=== PATIENT | female | born 1985 | race Caucasian/White ===

== ENCOUNTER 2017-01-11 08:11 | Emergency (ER) | payer OTHER ==
[~2017-01-11] VITALS: Ht 152.4 cm; Wt 72.6 kg
[2017-01-11] MEDS ORDERED: CEPH250S2 PO (08:43)
--- NOTE | 2017-01-11 08:44 | PHYS DOC ---
Past History Past Medical History: Other Past Surgical History: No Surgical History Smoking: Non-smoker Alcohol Use: None Drug Use: None Adult General Chief Complaint Chief Complaint: TOE PROBLEM HPI HPI Patient is a 31 year old F who presents with a right great toe nail that is ingrown and infected. Patient states it has gotten worse over the past couple days with increasing pain. Patient states walking makes it worse and resting makes it better. Patient denies any fevers. Patient denies any other symptoms. Review of Systems Review of Systems GEN: Denies fevers, chills, sweats HEENT: Denies blurred vision, sore throat CV: Denies chest pain RESP: Denies shortness of air, cough GI: Denies n/v/d NEURO: Denies confusion, dizziness MSK: Right great toe pain Allergies Allergies Allergies Coded Allergies Type Severity Reaction Last Updated Verified No Known Drug Allergies 10/25/13 No Physical Exam Physical Exam GEN.: No apparent distress. Alert and oriented. HEENT: Head is normocephalic, atraumatic NECK: Supple. LUNGS: CTAB. HEART: RRR, S1, S2 present. Peripheral pulses intact ABDOMEN: Soft, nontender. Positive bowel sounds. EXTREMITIES: Without any cyanosis, on the lateral side of the right great toe there is ingrown toenail with swelling and erythema secondary to paronychia , good dorsal pedis pulse, cap refill less than 2 seconds NEUROLOGIC: Normal speech, normal tone PSYCHIATRIC: Normal affect, normal mood. SKIN: No ulcerations EKG EKG [] Radiology/Procedures Radiology/Procedures [] Course & Med Decision Making Course & Med Decision Making Pertinent Labs and Imaging studies reviewed. (See chart for details) MDM: After reviewing the chart, CC/HPI/PMH, physical exam, I do not believe the patient has a emergent medical condition warranting further workup and/or admission at this time. I do not think the patient is septic from the paronychia infection on the right great toe. Explained to the patient that we' ll treat the paronychia with antibiotics first and have her follow-up with her family doctor or podiatry to deal with the ingrown toenail. Patient is stable for discharge. Additional verbal discharge instructions were provided to the patient and that if symptoms get worse or any new symptoms arise that are worrisome to the patient she is to return to the emergency room immediately [] Dragon Disclaimer Dragon Disclaimer This chart was dictated in whole or in part using Voice Recognition software in a busy, high-work load, and often noisy Emergency Department environment. It may contain unintended and wholly unrecognized errors or omissions. Departure Departure: Impression: Primary Impression: Paronychia of great toe, right Disposition: 01 HOME, SELF-CARE Condition: STABLE Referrals: LONNIE RUIZ MD (PCP) Patient Instructions: Paronychia, [id number] Scripts Cephalexin (CEPHALEXIN) 250 Mg/5 Ml Susp.recon 10 ML PO TID for 10 Days, #300 ML Prov: LALO BURGER DO 01/11/17 LALO BURGER DO Jan 11, 2017 08:44
[2017-01-11 09:12] VITALS: BP 122/94
[2017-01-11] MEDS ORDERED: EPINEPHrine 1 MG/ML AMPUL ONE (09:23)
== END 2017-01-11 09:00 | disposition home or self-care (01) ==
LOC: ER 08:11
DX: L03.031 Cellulitis of right toe (principal)
CPT/HCPCS: 99283

== ENCOUNTER 2020-10-04 16:26 | Emergency (ER) | payer OTHER, MEDICAID ==
[~2020-10-04] VITALS: Ht 152.4 cm; Wt 100.0 kg
[~2020-10-04 16:26] MED LIST: CEPH250S2 PO
[2020-10-04 16:28] VITALS: BP 122/94
--- NOTE | 2020-10-04 16:44 | PHYS DOC ---
Past History Past Medical History: Anxiety, Depression, Schizophrenia, Other Past Surgical History: No Surgical History Smoking: Non-smoker Alcohol Use: Rarely Drug Use: None General Adult EDM: Chief Complaint: KNEE INJURY HPI: HPI: Patient is a 28-year-old female brought in by EMS for right knee pain and swe lling. Patient states earlier she was moving some boxes and had a heavy 1 and was rotating to her right when she felt a pop. Has had a clicking sensation since on occasion with movement of her knee. States she has chronic knee pain sports injury. Never had surgery in that knee. No other injuries, otherwise been well. Review of Systems: Review of Systems: All other systems within normal limits except for as noted in the HPI Allergies: Allergies: Allergies Coded Allergies Type Severity Reaction Last Updated Verified No Known Drug Allergies 10/25/13 No Physical Exam: PE: Constitutional: Well developed, well nourished, no acute distress, non-toxic appearance. [] HENT: Normocephalic, atraumatic, bilateral external ears normal, nose normal. [] Eyes: PERRLA, conjunctiva normal, no discharge. [] Neck: No rigidity, supple, no stridor. [] Cardiovascular: Regular rate and rhythm, brisk cap refill [] Lungs & Thorax: Non labored symmetric respirations, no tachypnea or respiratory distress [] Abdomen: Soft, nondistended. Skin: Warm, dry, no erythema, no rash. [] Back: Unremarkable Extremities: No deformities, range of motion grossly intact, no lower extremity edema. Right knee exam: Tenderness over medial joint line, no varus, valgus, anterior, or posterior laxity. Moderate joint effusion. Range of motion intact in flexion extension of knee with and without resistance. [] Neurologic: Alert and oriented X 3, no focal deficits noted. [] Psychologic: Affect normal, judgement normal, mood normal. [] EKG: EKG: [] Radiology/Procedures: Radiology/Procedures: Right knee x-rays 3 views HISTORY: Right knee pain and swelling. FINDINGS: There is no true lateral view this may limit evaluation for subtle fractures or for a joint effusion. No fracture. No dislocation. No arthritic change. Soft tissues are unremarkable. IMPRESSION: No acute osseous injury. [] Heart Score: C/O Chest Pain: No Risk Factors: Risk Factors: DM, Current or recent (<one month) smoker, HTN, HLP, family history of CAD, obesity. Risk Scores: Score 0 - 3: 2.5% MACE over next 6 weeks - Discharge Home Score 4 - 6: 20.3% MACE over next 6 weeks - Admit for Clinical Observation Score 7 - 10: 72.7% MACE over next 6 weeks - Early Invasive Strategies Course & Med Decision Making: Course & Med Decision Making Pertinent Labs and Imaging studies reviewed. (See chart for details) [] Dragon Disclaimer: Dragon Disclaimer: This electronic medical record was generated, in whole or in part, using a voice recognition dictation system. Departure Departure: Impression: Primary Impression: Right knee injury Disposition: HOME / SELF CARE / HOMELESS Condition: STABLE Referrals: LONNIE RUIZ MD (PCP) Patient Instructions: Knee Wraps (Elastic Bandage) and RICE Additional Instructions: Obtain a hinged knee brace, available at most pharmacies. Wear whenever ambulating. Follow-up with your primary care provider for reevaluation in 4-5 days, possible MRI, and orthopedics referral for suspected meniscus injury. Scripts Lidocaine (Lidocaine) 5 Gm Cream..g. 1 RUBIO TP BID PRN for PAIN for 14 Days, #15 GM 0 Refills Prov: DAVIAN VELÁSQUEZ MD 10/04/20 DAVIAN VELÁSQUEZ MD Oct 04, 2020 16:44
--- NOTE | 2020-10-04 16:50 | RAD ---
Right knee x-rays 3 views HISTORY: Right knee pain and swelling. FINDINGS: There is no true lateral view this may limit evaluation for subtle fractures or for a joint effusion. No fracture. No dislocation. No arthritic change. Soft tissues are unremarkable. IMPRESSION: No acute osseous injury. Electronically signed by: Alex Jefferson MD (10/04/2020 4:48 PM) [id number]
[2020-10-04] MEDS ORDERED: LIDO5CRE18 TP (17:02)
== END 2020-10-04 17:12 | disposition home or self-care (01) ==
LOC: ER 16:26
DX: S89.91XA Unspecified injury of right lower leg, initial encounter (principal); F20.9 Schizophrenia, unspecified; X50.9XXA Other and unspecified overexertion or strenuous movements or postures, initial encounter; Y93.89 Activity, other specified; Y92.89 Other specified places as the place of occurrence of the external cause; Y99.8 Other external cause status
CPT/HCPCS: 73562; 99283

== ENCOUNTER 2020-10-17 11:28 | Emergency (ER) | payer OTHER, MEDICAID ==
[~2020-10-17] VITALS: Ht 167.6 cm; Wt 67.0 kg
[~2020-10-17 11:28] MED LIST changes: +LIDO5CRE18 TP
[2020-10-17] MEDS ORDERED: ONDA4TAB12 PO (13:07)
--- NOTE | 2020-10-17 13:08 | PHYS DOC ---
Past History Past Medical History: Anxiety, Depression, Other Additional Past Medical Histor: CP Past Surgical History: Other Smoking: Non-smoker Alcohol Use: Occasionally Drug Use: None Adult General Chief Complaint Chief Complaint: NAUSEA/VOMITING/DIARRHEA HPI HPI Patient is a 35-year-old female presents to the emergency department complaining of needing a prescription refill for Zofran to treat her withdrawal symptoms from Zyprexa. Patient states she has a past medical history of cerebral palsy, depression and anxiety, is treated by Dr. Rankin psychiatry specialist at [facility], patient states her psychiatrist started her on Abilify and took her off of Zyprexa. Patient states that she becomes nauseated in waves and Zofran helps her. Patient states she has no more Zofran and would like to obtain a prescription today. Patient denies any chest pain, shortness of breath, homicidal suicidal ideations, denies auditory or visual hallucinations. Patient denies any other physical or neurological complaints. Review of Systems Review of Systems 14 body systems of review of systems have been reviewed. See HPI for pertinent positives and negative responses, otherwise all other systems are negative, nonpertinent or noncontributory. Allergies Allergies Allergies Coded Allergies Type Severity Reaction Last Updated Verified No Known Drug Allergies 10/25/13 No Physical Exam Physical Exam Constitutional: Well developed, well nourished, no acute distress, non-toxic appearance. 35-year-old female in no apparent distress. HENT: Normocephalic, atraumatic, bilateral external ears normal, oropharynx moist, no oral exudates, nose normal. Oropharynx moist, pink, no infectious process appreciated, no lymphadenopathy of the head or neck appreciated. Bilateral TMs within normal limits, by lateral nasal turbinates nonerythematous no drainage appreciated within normal limits. Eyes: PERRLA, EOMI, conjunctiva normal, no discharge. Neck: Normal range of motion, no tenderness, supple, no stridor. No nuchal rigidity, no meningismus signs. Cardiovascular:Heart rate regular rhythm, no murmur heart sounds S1-S2. Lungs & Thorax: Bilateral breath sounds clear to auscultation no adventitious lung sounds appreciated. Abdomen: Bowel sounds normal, soft, no tenderness, no masses, no pulsatile masses. Skin: Warm, dry, no erythema, no rash. Back: No tenderness, no CVA tenderness. Extremities: No tenderness, no cyanosis, no clubbing, ROM intact, no edema. Neurologic: Alert and oriented X 3, normal motor function, normal sensory funct ion, no focal deficits noted. Psychologic: Affect normal, judgement normal, mood normal. Current Patient Data Vital Signs Vital Signs Date Time Temp Pulse Resp B/P (MAP) Pulse Ox O2 Delivery O2 Flow Rate FiO2 10/17/20 11:44 98.8 90 18 137/74 (95) 99 Room Air EKG EKG [] Radiology/Procedures Radiology/Procedures [] Heart Score C/O Chest Pain: No Risk Factors: Risk Factors: DM, Current or recent (<one month) smoker, HTN, HLP, family history of CAD, obesity. Risk Scores: Risk Factors: DM, Current or recent (<one month) smoker, HTN, HLP, family history of CAD, obesity. Course & Med Decision Making Course & Med Decision Making Pertinent Labs and Imaging studies reviewed. (See chart for details) 35-year-old female, vital signs reviewed, presents emergency department chela rning refill for Zofran medication. Physical examination unremarkable, patient states she experiences waves of nausea since recently DC in her Zyprexa. Patient treats this nausea with Zofran as "it seems to help the best "discussed with patient will prescribe 16 tablets Zofran 4 mg ODT for as needed nausea. Patient amenable to this plan. Patient gave verbal understanding of discharge home instructions, follow-up with her primary care physician, keep appointment with her psychiatrist this coming week, return to ER precautions or concerns, patient had no further questions or concerns, was discharged home without incident. Dragon Disclaimer Dragon Disclaimer This electronic medical record was generated, in whole or in part, using a voice recognition dictation system. Departure Departure: Impression: Primary Impression: Medication refill Disposition: HOME / SELF CARE / HOMELESS Condition: GOOD Referrals: LONNIE RUIZ MD (PCP) Additional Instructions: You are seen in the emergency department for a refill of your Zofran. I have prescribed for you 16 tablets Zofran ODT. Please keep your appointment with your psychiatrist soon, return to the emergency department for worsening symptoms or other concerns. EMERGENCY DEPARTMENT GENERAL DISCHARGE INSTRUCTIONS Thank you for coming to [facility] (ED) today and trusting us with you care. We trust that you had a positivie experience in our Emergency Department. If you wish to speak to the department management, you may call the director at [phone]. YOUR FOLLOW UP INSTRUCTIONS ARE FOLLOWS: 1. Do you have a private Doctor? If you do not have a private doctor, please ask for a resource list of physicians or clinics that may be able to assist you with follow up care. 2. The Emergency Physician has interpreted your x-rays. The X-Ray specialist will also review them. If there is a change in the findings, you will be notified in 48 hours when at all possible. 3. A lab test or culture has been done, your results will be reviewed and you will be notified if you need a change in treatment. ADDITIONAL INSTRUCTIONS AND INFORMATION: 1. Your care today has been supervised by a physician who is specially trained in emergency care. Many problems require more than one evaluation for a complete diagnosis and treatment. We recommend that you schedule your follow up appointment as recommended to ensure complete treatment of you illness or injury. If you are unable to obtain follow up care and continue to have a problem, or if your condition worsens, we recommend that you return to the ED. 2. We are not able to safely determine your condition over the phone nor are we able to give sound medical advice over the phone. For these safety reasons, if you call for medical advice we will ask you to come to the ED for further evaluation. 3. If you have any questions regarding these discharge instructions please call the ED at [phone]. SAFETY INFORMATION: In the interest of safety, wellness, and injury prevention; we encourage you to wear your sealbelt, if you smoke; quite smoking, and we encourage family to use a protective helmet for bicycling and other sporting events that present an increased risk for head injury. IF YOUR SYMPTOMS WORSEN OR NEW SYMPTOMS DEVELOP, OR YOU HAVE CONCERNS ABOUT YOUR CONDITION; OR IF YOUR CONDITION WORSENS WHILE YOU ARE WAITING FOR YOUR FOLLOW UP APPOINTMENT; EITHER CONTACT YOUR PRIMARY CARE DOCTOR, THE PHYSICIAN WHOSE NAME AND NUMBER YOU WERE GIVEN, OR RETURN TO THE ED IMMEDIATELY. Scripts Ondansetron (ONDANSETRON ODT) 4 Mg Tab.rapdis 1 TAB PO PRN Q6-8HRS for NAUSEA, #16 TAB 0 Refills Prov: YADI VALIENTE AUTO SLIP COVER INSTALLER 10/17/20 YADI VALIENTE APRN Oct 17, 2020 13:08
[2020-10-17 13:11] VITALS: BP 117/77
== END 2020-10-17 13:11 | disposition home or self-care (01) ==
LOC: ER 11:28
DX: R11.0 Nausea (principal); Z76.0 Encounter for issue of repeat prescription; F41.9 Anxiety disorder, unspecified; F32.9 Major depressive disorder, single episode, unspecified; G80.9 Cerebral palsy, unspecified
CPT/HCPCS: 99281; 99283

== ENCOUNTER 2020-11-10 23:34 | Emergency (ER) | payer OTHER, MEDICAID ==
[~2020-11-10] VITALS: Ht 157.5 cm; Wt 72.0 kg
[~2020-11-10 23:34] MED LIST changes: +ONDA4TAB12 PO
--- NOTE | 2020-11-10 23:44 | PHYS DOC ---
Past History Past Medical History: Anxiety, Depression, Other Additional Past Medical Histor: CP Past Surgical History: Other Smoking: Non-smoker Alcohol Use: Occasionally Drug Use: None General Adult HPI: HPI: ".. I got this bad rash.. I ve been told it fungal.. I could not wait to see Dr. Young tomorrow... " Patient is a 35 year old female who presents with above hx and conplaints of rash on breasts x 3 days. Patient states rash is very irritating and inflamed. Patient has been told in the past that this rash was caused by fungus. No history of immunosuppression. No history of new exposures to soaps, foods, or other ill irritants. No recent travel. No specific ill contacts. No history immunosuppression. No history of diabetes. Patient does have a past medical history of anxiety, depression, cerebral palsy, deconditioning, and skin rashes. Patient follows with Dr. Young. Review of Systems: Review of Systems: Constitutional: Denies fever or chills Eyes: Denies change in visual acuity HENT: Denies nasal congestion or sore throat Respiratory: Denies cough or shortness of breath Cardiovascular: Denies chest pain or edema GI: Denies abdominal pain, nausea, vomiting, bloody stools or diarrhea : Denies dysuria Musculoskeletal: Denies back pain or joint pain Integument: Complains of rash Neurologic: Denies headache, focal weakness or sensory changes Endocrine: Denies polyuria or polydipsia Lymphatic: Denies swollen glands Psychiatric: Denies depression or anxiety Family History: Family History: Noncontributory to presentation. Current Medications: Current Meds: See nursing for home meds Allergies: Allergies: Allergies Coded Allergies Type Severity Reaction Last Updated Verified No Known Drug Allergies 10/25/13 No Physical Exam: PE: Constitutional: Moderate acute distress, non-toxic appearance. [] HENT: Normocephalic, atraumatic, bilateral external ears normal, oropharynx moist, no oral exudates, nose normal. Poor dentition Eyes: PERRLA, EOMI, conjunctiva normal, no discharge. [] Neck: Normal range of motion, no tenderness, supple, no stridor. [] Cardiovascular:Heart rate regular rhythm, no murmur [] Lungs & Thorax: Bilateral breath sounds equal apex few scattered wheezes on auscultation [] The area under breast and breast cleavage inflamed and red. Area had demarcation. Area was tender to touch. No adenopathy appreciated in axillary area. Abdomen: Bowel sounds normal, soft, no tenderness, no masses, no pulsatile mas ses. Obese. Skin: Warm, dry, no erythema, Carine versus tinea versicolor-like rash. [] Back: No tenderness, no CVA tenderness. [] Extremities: No tenderness, no cyanosis, no clubbing, ROM intact, no edema. Lower limb weakness, CP-chronic Neurologic: Alert and oriented X 3, decrease lower leg motor function, has distal sensory function, no new focal deficits noted. per pt. Psychologic: Affect anxious, judgement normal, mood normal. [] EKG: EKG: [] Radiology/Procedures: Radiology/Procedures: [] Heart Score: C/O Chest Pain: N/A Risk Factors: Risk Factors: DM, Current or recent (<one month) smoker, HTN, HLP, family history of CAD, obesity. Risk Scores: Score 0 - 3: 2.5% MACE over next 6 weeks - Discharge Home Score 4 - 6: 20.3% MACE over next 6 weeks - Admit for Clinical Observation Score 7 - 10: 72.7% MACE over next 6 weeks - Early Invasive Strategies Course & Med Decision Making: Course & Med Decision Making Pertinent Labs and Imaging studies reviewed. (See chart for details) Patient wash breast area and rest area with selenium sulfide shampoo at least twice a day. Use Epson salts and or salt compresses 4 times a day. To apply ketoconazole ointment twice a day to rash after compresses and washing.. Patient take Diflucan 100 mg daily for 3 days. Patient follow-up with Dr. Melgoza. Patient return if any concerns. In between worsening area of rash to keep area dry. Impression: 1. Rash-suspect candidiasis versus tenia versicolora [] Dragon Disclaimer: Dragon Disclaimer: This electronic medical record was generated, in whole or in part, using a voice recognition dictation system. Departure Departure: Referrals: LONNIE YOUNG MD (PCP) Scripts Ketoconazole (KETOCONAZOLE) 15 Gm Cream..g. 1 RUBIO TP BID for rash, #60 GM 1 Refill Prov: JEFF DOMINGO MD 11/11/20 Fluconazole (DIFLUCAN) 100 Mg Tablet 100 MG PO DAILY for rash for 3 Days, #3 TAB Prov: JEFF DOMINGO MD 11/11/20 Shivani Disclaimer This chart was dictated in whole or in part using Voice Recognition software in a busy, high-work load, and often noisy Emergency Department environment. It may contain unintended and wholly unrecognized errors or omissions. Dragon Disclaimer This chart was dictated in whole or in part using Voice Recognition software in a busy, high-work load, and often noisy Emergency Department environment. It may contain unintended and wholly unrecognized errors or omissions. JEFF DOMINGO MD November 10, 2020 23:43
[2020-11-11] MEDS ORDERED: HYDROcodon/IBUPROFEN 7.5/200MG 1 TAB TABLET PO ONE (00:30)
[2020-11-11] MEDS ORDERED: FLUCONAZOLE 100 MG TABLET. PO ONE (00:30)
[2020-11-11] MEDS ORDERED: KETO15CR2 TP (01:57)
[2020-11-11] MEDS ORDERED: FLUC100T7 PO (01:57)
[2020-11-11 02:07] VITALS: BP 133/88
[2020-11-11 02:14] LABS: BILIRUBIN,URINE NEG (NEG); CLARITY,URINE CLEAR; COLOR,URINE YELLOW; GLUCOSE,URINE NEG (NEG); NITRITE,URINE NEG (NEG)
[2020-11-11 02:15] LABS: BACTERIA,URINE 0 /HPF (0-FEW); RBC,URINE 0 /HPF (0-2); SQUAMOUS EPITHELIAL CELL,UR MANY /LPF; WBC,URINE 0 /HPF (0-4)
[2020-11-11] MEDS ORDERED: NYSTATIN 100,000 UNIT/GM TOPICAL CREAM 15GM TUBE. TP ONE (02:15)
[2020-11-11] MEDS ORDERED: KETOCONAZOLE 200 MG TABLET PO SCH (09:00)
== END 2020-11-11 02:06 | disposition home or self-care (01) ==
LOC: ER 23:34
DX: R21 Rash and other nonspecific skin eruption (principal); F41.9 Anxiety disorder, unspecified; F32.9 Major depressive disorder, single episode, unspecified
CPT/HCPCS: 81001; 81025; 99284

== ENCOUNTER 2020-11-11 22:47 | Emergency (ER) | payer OTHER, MEDICAID ==
[~2020-11-11] VITALS: Ht 157.5 cm; Wt 72.0 kg
[~2020-11-11 22:47] MED LIST changes: +FLUC100T7 PO; +KETO15CR2 TP
--- NOTE | 2020-11-12 00:23 | PHYS DOC ---
Past History Past Medical History: Alcoholism, Other Past Surgical History: No Surgical History Smoking: Non-smoker Alcohol Use: Heavy Drug Use: None General Adult EDM: Chief Complaint: SUICIDAL IDEATION HPI: HPI: 35-year-old female via EMS presents with report of suicidal ideation. Patient denies active plan. Patient reports she "just does not want to be here ". Patient reports history of increased life stressors. Patient reports that an individual that had bothered her previously seems to be "popping "back up. Patient reports this individual looks like Lavelle Srivastava. Patient reports she has subsequently discussed this with police multiple times who do not "believe her ". Patient reports history of chronic alcoholism. Reports previously drink several liters of vodka daily. Patient reports she has not drink within the last 24 hours. Denies history of delirium tremens. Denies . Denies illicit drug use. Review of Systems: Review of Systems: Constitutional: Denies fever or chills Eyes: Denies redness or eye pain HENT: Denies nasal congestion or sore throat Respiratory: Denies cough or shortness of breath Cardiovascular: Denies chest pain or palpitations GI: Denies abdominal pain, nausea, or vomiting : Denies dysuria or hematuria Musculoskeletal: Denies back pain or joint pain Integument: Denies rash or skin lesions Neurologic: Denies headache, focal weakness or sensory changes Psychiatric: Reports suicidal ideation without plan; denies homicidal ideation Complete systems were reviewed and found to be within normal limits, except as documented in this note. Allergies: Allergies: Allergies Coded Allergies Type Severity Reaction Last Updated Verified No Known Drug Allergies 11/11/20 No Physical Exam: PE: Constitutional: Well developed, well nourished, flat affect, non-toxic appearance HENT: Normocephalic, atraumatic Eyes: PERRL, EOMI, conjunctiva normal, no discharge Neck: Normal range of motion, no tenderness, supple Lungs & Thorax: No respiratory distress, equal chest rise and fall Abdomen: Soft, no tenderness Skin: Warm, dry, no erythema, no rash Extremities: No tenderness, ROM intact, no edema Neurologic: Alert and oriented X 3, normal motor function, normal sensory function, no focal deficits noted Psychologic: Affect flat, judgment abnormal, reports suicidal ideation without plan EKG: EKG: @0022 NSR at 89bpm, NO ST elevation, QRS 76ms, QT/QTc 350/427ms Radiology/Procedures: Radiology/Procedures: [] Heart Score: C/O Chest Pain: N/A Course & Med Decision Making: Course & Med Decision Making Pertinent Lab studies reviewed. (See chart for details) Patient presents with report of suicidal ideation. Reports "I just do not want to be here ". Patient does report history of alcohol abuse. Reports has not drank in the last 24 hours. Denies illicit drug use. Patient denies prior inpatient psychiatric admission. Patient previously was following with [facility]. Reports has not followed with them secondary to them "screwing up her medication ". Labs obtained and posted to chart. PAT consultation ordered. Amina (MOHINDER) evaluated patient with recommendation that patient safe for outpatient follow-up with safety plan with [facility]. Patient stable for discharge with outpatient follow-up with PCP/mental health. Discussed findings and plan with patient, who acknowledges understanding and agreement. Shivani Disclaimer: Shivani Disclaimer: This electronic medical record was generated, in whole or in part, using a voice recognition dictation system. Departure Departure: Impression: Primary Impression: Suicidal ideation Disposition: HOME / SELF CARE / HOMELESS Condition: STABLE Referrals: LONNIE RUIZ MD (PCP) Patient Instructions: Suicidal Feelings, How to Help Yourself YADI RUELAS DO November 12, 2020 00:23
--- NOTE | 2020-11-12 00:31 | EKG ---
[address] [address] Test Date: 2020-11-12 Test Time: 00:22:52 Pat Name: RASHMI LEHMAN Department: Room: Gender: F Pegger: : 1985 Requested By: YADI RUELAS Order Number: [id number] Reading MD: Measurements Intervals Chama Rate: 89 P: 31 WV: 162 QRS: -13 QRSD: 76 T: 7 QT: 350 QTc: 427 Interpretive Statements SINUS RHYTHM LEFTWARD AXIS OTHERWISE NORMAL ECG RI6.02 No previous ECG available for comparison
[2020-11-12 01:49] LABS: BASO % 0 % (0-3); EOS % 0 % (0-3); HEMATOCRIT 42.3 % (36.0-47.0); HEMOGLOBIN 14.2 g/dL (12.0-15.5); LYMPH # 2.4 x10^3/uL (1.0-4.8); LYMPH % 17 % (24-48); MEAN CORPUSCULAR HEMOGLOBIN 30 pg (25-35); MEAN CORPUSCULAR HGB CONC 34 g/dL (31-37); MEAN CORPUSCULAR VOLUME 90 fL (79-100); MONO # 0.7 x10^3/uL (0.0-1.1); MONO % 5 % (0-9); NEUT # 10.5 x10^3uL (1.8-7.7); NEUT % 77 % (31-73); PLATELET COUNT 289 x10^3/uL (140-400); RED BLOOD COUNT 4.71 x10^6/uL (3.50-5.40); RED CELL DISTRIBUTION WIDTH 13.5 % (11.5-14.5); WHITE BLOOD COUNT 13.7 x10^3/uL (4.0-11.0)
[2020-11-12 02:10] VITALS: BP 105/65
[2020-11-12 02:17] LABS: CALCIUM 9.4 mg/dL (8.5-10.1); CREATININE 0.8 mg/dL (0.6-1.0); GFR 80.7; POTASSIUM 3.7 mmol/L (3.5-5.1)
[2020-11-12 02:22] LABS: ALBUMIN 3.7 g/dL (3.4-5.0); ALBUMIN/GLOBULIN RATIO 0.9 (1.0-1.7); MAGNESIUM 1.8 mg/dL (1.8-2.4); TOTAL BILIRUBIN 0.5 mg/dL (0.2-1.0); TOTAL PROTEIN 7.7 g/dL (6.4-8.2)
[2020-11-12 02:27] LABS: ACETAMIN < 2 mcg/mL (10-30); ETHANOL < 10 mg/dL (0-10); SALIC < 2.8 mg/dL (2.8-20.0)
== END 2020-11-12 02:20 | disposition home or self-care (01) ==
LOC: ER 22:47
DX: R45.851 Suicidal ideations (principal); F10.20 Alcohol dependence, uncomplicated; Y90.0 Blood alcohol level of less than 20 mg/100 ml
CPT/HCPCS: 80053; 80329; 83735; 85025; 93005; 99285; G0480

== ENCOUNTER 2020-12-08 02:14 | Emergency (ER) | payer OTHER, MEDICAID ==
[~2020-12-08] VITALS: Ht 157.5 cm; Wt 72.0 kg
[2020-12-08 02:19] VITALS: BP 121/76
--- NOTE | 2020-12-08 02:23 | PHYS DOC ---
Past History Past Medical History: Alcoholism, Other (JEFF KEITH MD) Past Surgical History: No Surgical History (JEFF KEITH MD) Smoking: Non-smoker Alcohol Use: Heavy Drug Use: None (JEFF KEITH MD) General Adult EDM: Chief Complaint: SUICIDAL IDEATION HPI: HPI: ".. I ve been thinking about killing my self.. I not followed at the counseling center for over a year.. because the counselor I like ... " Patient is a 35 year old female who presents with above hx and complaints of depression, anxiety, suicidal ideation. Patient does have a past history of depression , anxiety ,cerebral palsy, deconditioning PTSD, alcohol abuse, fungal rashes. History of 2 previous suicide attempts 1 by pills and 1 by firearm. Patient denies any recent legal issues or restaurants. Patient denies any ingestion of drugs today. Patient denies any recent travel or specific ill contacts. Patient normally follows with Dr. Melgoza. (JEFF KEITH MD) Review of Systems: Review of Systems: Constitutional: Denies fever or chills Eyes: Denies change in visual acuity HENT: Denies nasal congestion or sore throat Respiratory: Denies cough or shortness of breath Cardiovascular: Denies chest pain or edema GI: Denies abdominal pain, nausea, vomiting, bloody stools or diarrhea : Denies dysuria Musculoskeletal: Denies back pain or joint pain Integument: Denies rash Neurologic: Denies headache, focal weakness or sensory changes Endocrine: Denies polyuria or polydipsia Lymphatic: Denies swollen glands Psychiatric: Complains of depression or anxiety (JEFF KEITH MD) Family History: Family History: Noncontributory to presentation (JEFF KEITH MD) Allergies: Allergies: Allergies Coded Allergies Type Severity Reaction Last Updated Verified No Known Drug Allergies 12/08/20 No (JEFF KEITH MD) Physical Exam: PE: Constitutional: Emotional distress, non-toxic appearance. [] HENT: Normocephalic, atraumatic, bilateral external ears normal, oropharynx moist, no oral exudates, nose normal. [] Eyes: PERRLA, EOMI, conjunctiva normal, no discharge. [] Neck: Normal range of motion, no tenderness, supple, no stridor. [] Cardiovascular:Heart rate regular rhythm, no murmur [] Lungs & Thorax: Bilateral breath sounds equal apex auscultation [] Abdomen: Bowel sounds normal, soft, no tenderness, no masses, no pulsatile masses. [] Skin: Warm, dry, no erythema, no rash. [] Back: Rt. Trapezius muscle > at T 6 level, no mid line tenderness, no CVA tenderness. [] Extremities: No tenderness, no cyanosis, no clubbing, ROM intact, no edema. Normal leg movement. No cording Neurologic: Alert and oriented X 3, moves upper extremities on request, has distal sensory,, no focal deficits noted. [] Psychologic: Affect anxious, reports suicidal ideation, judgement normal, mood reports depression (JEFF KEITH MD) EKG: EKG: My interpretation EKG shows sinus rhythm 81 bpm. Does have leftward axis changes. There is some nonspecific changes anterior septal leads. But no findings acute STEMI of contralateral changes. [] (JEFF KEITH MD) Radiology/Procedures: Radiology/Procedures: [] (JEFF KEITH MD) Heart Score: C/O Chest Pain: N/A HEART Score for Chest Pain: HEART Score for Chest Pain Response (Comments) Value History Slighlty/Non-Suspicious 0 ECG Normal 0 Age < 45 0 Risk Factors No Risk Factors 0 Troponin < Normal Limit 0 Total 0 Risk Factors: Risk Factors: DM, Current or recent (<one month) smoker, HTN, HLP, family history of CAD, obesity. Risk Scores: Score 0 - 3: 2.5% MACE over next 6 weeks - Discharge Home Score 4 - 6: 20.3% MACE over next 6 weeks - Admit for Clinical Observation Score 7 - 10: 72.7% MACE over next 6 weeks - Early Invasive Strategies (JEFF KEITH MD) Course & Med Decision Making: Course & Med Decision Making Pertinent Labs and Imaging studies reviewed. (See chart for details) See psychological counselor report- Plan transfer to [facility] at 0800 hrs. Impression: 1. Suicidal ideation 2. Depression 3. Anxiety 4. CP- Wheel Chair depnedent 5. Rapid Covid is negative [] (JEFF KEITH MD) Course & Med Decision Making I received signout at shift change by Dr. Keith. Patient with suicidal ideations. Per hospital policy, patient has been assessed by PAT team and plan is to transfer by EMS to [facility] for evaluation. No acute events during my shift. Patient was stable at time of discharge. Will discharge with strict ED return precautions were given for hallucinations, homicidal ideation, suicidal ideations/suicidal plans, fever or trauma. Encouraged urgent outpatient follow- up with PMD and psychiatry. Life-threatening processes were considered but are low suspicion at this time, given history, physical exam and ED workup. Pt was educated on all prescription medications and adverse effects. All patient's questions were answered and pt was stable at time of discharge. Life/limb-threatening differential includes but is not limited to, end organ damage/sepsis, trauma/abuse/neglect, neurologic deficit, alcohol/drug ingestion, toxidrome, suicidal/homicidal ideations plans or attempts, psychosis or mental illness resulting in self neglect and inability to care for self. I spoken with the patient and her caregivers. I explained the patient's condition, diagnoses and treatment plan based on the information available to me at this time. I have answered the patient and her caregiver's questions and addressed any concerns. The patient and her caregivers have a good understanding of patient's diagnosis, condition and treatment plan as can be exp ected at this point. Vital signs have been stable. Patient's condition is stable and appropriate for discharge from the emergency department. Patient will pursue further outpatient evaluation with primary care physician or other designated or consulting physician as outlined in the discharge instructions. The patient and/or caregivers are agreeable to this plan of care and follow-up instructions have been explained in detail. The patient and/or caregivers have received these instructions in written form and have expressed an understanding of the discharge instructions. The patient and/or caregivers are aware that any significant change of condition or worsening of symptoms should prompt immediate return to this or the closest emergency department or c all to 911. ([facility],HEIDI Alvarez DO) [place]on Disclaimer: Draghumble Disclaimer: This electronic medical record was generated, in whole or in part, using a voice recognition dictation system. (JEFF KEITH MD) Departure Departure: Impression: Primary Impression: Suicidal ideations Disposition: 01 HOME / SELF CARE / HOMELESS (transferred by ems to [facility]) Condition: STABLE Referrals: LONNIE RUIZ MD (PCP) Patient Instructions: Suicidal Feelings, How to Help Yourself Additional Instructions: FOLLOW UP WITH PSYCHIATRY: [facility] [address] [place] [address] [facility] [address] [place] [address] [facility] [address] [place] [address] [employer] 10/[facility] [address] [place] [address] EMERGENCY DEPARTMENT GENERAL DISCHARGE INSTRUCTIONS Thank you for coming to [facility] (ED) today and trusting us with you care. We trust that you had a positivie experience in our Emergency Department. If you wish to speak to the department management, you may call the director at [phone]. YOUR FOLLOW UP INSTRUCTIONS ARE FOLLOWS: 1. Do you have a private Doctor? If you do not have a private doctor, please ask for a resource list of physicians or clinics that may be able to assist you with follow up care. 2. The Emergency Physician has interpreted your x-rays. The X-Ray specialist will also review them. If there is a change in the findings, you will be notified in 48 hours when at all possible. 3. A lab test or culture has been done, your results will be reviewed and you will be notified if you need a change in treatment. ADDITIONAL INSTRUCTIONS AND INFORMATION: 1. Your care today has been supervised by a physician who is specially trained in emergency care. Many problems require more than one evaluation for a complete diagnosis and treatment. We recommend that you schedule your follow up appointment as recommended to ensure complete treatment of you illness or injury. If you are unable to obtain follow up care and continue to have a problem, or if your condition worsens, we recommend that you return to the ED. 2. We are not able to safely determine your condition over the phone nor are we able to give sound medical advice over the phone. For these safety reasons, if you call for medical advice we will ask you to come to the ED for further evaluation. 3. If you have any questions regarding these discharge instructions please call the ED at [phone]. SAFETY INFORMATION: In the interest of safety, wellness, and injury prevention; we encourage you to wear your sealbelt, if you smoke; quite smoking, and we encourage family to use a pro tective helmet for bicycling and other sporting events that present an increased risk for head injury. IF YOUR SYMPTOMS WORSEN OR NEW SYMPTOMS DEVELOP, OR YOU HAVE CONCERNS ABOUT YOUR CONDITION; OR IF YOUR CONDITION WORSENS WHILE YOU ARE WAITING FOR YOUR FOLLOW UP APPOINTMENT; EITHER CONTACT YOUR PRIMARY CARE DOCTOR, THE PHYSICIAN WHOSE NAME AND NUMBER YOU WERE GIVEN, OR RETURN TO THE ED IMMEDIATELY. JEFF KEITH MD Dec 08, 2020 02:23 HEIDI VELÁZQUEZ DO Dec 08, 2020 08:23
--- NOTE | 2020-12-08 02:52 | EKG ---
[address] [address] Test Date: 2020-12-08 Test Time: 02:46:58 Pat Name: RASHMI LEHMAN Department: Room: Gender: F Computer Technology Trainer: : 1985 Requested By: JEFF DOMINGO Order Number: [id number] Reading MD: Measurements Intervals [place] Rate: 81 P: 31 AR: 160 QRS: -22 QRSD: 72 T: 31 QT: 344 QTc: 400 Interpretive Statements SINUS RHYTHM LEFTWARD AXIS QRS(T) CONTOUR ABNORMALITY CONSIDER ANTEROSEPTAL MYOCARDIAL DAMAGE POSSIBLY ABNORMAL ECG RI6.01 No previous ECG available for comparison
[2020-12-08] MEDS ORDERED: IV RINGERS SOLUTION,LACTATED 1,000 ML IV SCH (03:00)
[2020-12-08 03:32] LABS: BASO % 0 % (0-3); EOS % 0 % (0-3); HEMATOCRIT 44.2 % (36.0-47.0); HEMOGLOBIN 14.7 g/dL (12.0-15.5); LYMPH # 2.8 x10^3/uL (1.0-4.8); LYMPH % 27 % (24-48); MEAN CORPUSCULAR HEMOGLOBIN 30 pg (25-35); MEAN CORPUSCULAR HGB CONC 33 g/dL (31-37); MEAN CORPUSCULAR VOLUME 90 fL (79-100); MONO # 0.7 x10^3/uL (0.0-1.1); MONO % 6 % (0-9); NEUT # 6.9 x10^3uL (1.8-7.7); NEUT % 66 % (31-73); PLATELET COUNT 298 x10^3/uL (140-400); RED CELL DISTRIBUTION WIDTH 13.3 % (11.5-14.5); WHITE BLOOD COUNT 10.4 x10^3/uL (4.0-11.0)
[2020-12-08 03:34] LABS: CALCIUM 9.4 mg/dL (8.5-10.1); CREATININE 0.8 mg/dL (0.6-1.0); GFR 80.7; POTASSIUM 3.8 mmol/L (3.5-5.1)
[2020-12-08 03:35] LABS: BILIRUBIN,URINE NEG (NEG); CLARITY,URINE CLEAR; COLOR,URINE YELLOW; GLUCOSE,URINE NEG (NEG)
[2020-12-08 03:36] LABS: AMORPHOUS SEDIMENT,UR PRESENT /HPF; BACTERIA,URINE 0 /HPF (0-FEW); NITRITE,URINE NEG (NEG); RBC,URINE 0 /HPF (0-2); SQUAMOUS EPITHELIAL CELL,UR MOD /LPF; UROBILINOGEN,URINE 0.2 mg/dL (0.2 mg/dL); WBC,URINE 0 /HPF (0-4)
[2020-12-08 03:39] LABS: BARBITURATES NEG (NEG); BENZODIAZEPINES NEG (NEG); CANNABINOIDS NEG (NEG); COCAINE NEG (NEG); METHADONE NEG (NEG); OPIATES NEG (NEG); PHENCYCLIDINE NEG (NEG)
[2020-12-08 03:40] LABS: AMPHETAMINE/METHAMPHETAMINE NEG (NEG)
[2020-12-08 03:46] LABS: ALBUMIN 3.5 g/dL (3.4-5.0); DIRECT BILIRUBIN 0.1 mg/dL (0.0-0.2); MAGNESIUM 1.6 mg/dL (1.8-2.4); TOTAL BILIRUBIN 0.4 mg/dL (0.2-1.0); TOTAL PROTEIN 7.7 g/dL (6.4-8.2)
[2020-12-08 03:50] LABS: ACETAMIN < 2.0 mcg/mL (10-30); PREG TEST PT QUAL NEGATIVE (NEG)
[2020-12-08 03:51] LABS: ETHANOL < 10 mg/dL (0-10)
[2020-12-08 03:52] LABS: SALIC < 2.8 mg/dL (2.8-20.0)
== END 2020-12-08 09:45 | disposition home or self-care (01) ==
LOC: ER 02:14
DX: F32.9 Major depressive disorder, single episode, unspecified (principal); F41.9 Anxiety disorder, unspecified; R45.851 Suicidal ideations; F10.20 Alcohol dependence, uncomplicated; Z20.822 Contact with and (suspected) exposure to COVID-19; Z91.5 Personal history of self-harm; Y90.0 Blood alcohol level of less than 20 mg/100 ml
CPT/HCPCS: 36415; 80048; 80076; 80307; 81001; 82550; 83735; 84443; 84484; 84703; 85025; 87426; 93005; 96360; 99285; C9803; G0480; J7120; U0003; 80329

== ENCOUNTER 2020-12-29 11:02 | Emergency (ER) | payer OTHER, MEDICAID ==
[~2020-12-29] VITALS: Ht 157.5 cm; Wt 72.0 kg
--- NOTE | 2020-12-29 11:42 | NUR ---
CALLED SPENCER FROM PAT TEAM FOR EVALUATION. SPENCER IS IN ROUTE.
[2020-12-29 11:44] LABS: CALCIUM 9.5 mg/dL (8.5-10.1); CREATININE 0.8 mg/dL (0.6-1.0); GFR 80.7; POTASSIUM 3.6 mmol/L (3.5-5.1)
[2020-12-29 11:50] LABS: ALBUMIN 3.7 g/dL (3.4-5.0); ALBUMIN/GLOBULIN RATIO 0.9 (1.0-1.7); TOTAL BILIRUBIN 0.5 mg/dL (0.2-1.0); TOTAL PROTEIN 7.6 g/dL (6.4-8.2)
[2020-12-29 11:58] LABS: BASO % 0 % (0-3); EOS % 0 % (0-3); HEMATOCRIT 44.5 % (36.0-47.0); HEMOGLOBIN 14.8 g/dL (12.0-15.5); LYMPH # 3.1 x10^3/uL (1.0-4.8); LYMPH % 24 % (24-48); MEAN CORPUSCULAR HEMOGLOBIN 30 pg (25-35); MEAN CORPUSCULAR HGB CONC 33 g/dL (31-37); MEAN CORPUSCULAR VOLUME 90 fL (79-100); MONO # 0.9 x10^3/uL (0.0-1.1); MONO % 7 % (0-9); NEUT # 8.8 x10^3uL (1.8-7.7); NEUT % 68 % (31-73); PLATELET COUNT 370 x10^3/uL (140-400); RED BLOOD COUNT 4.96 x10^6/uL (3.50-5.40); WHITE BLOOD COUNT 12.9 x10^3/uL (4.0-11.0)
[2020-12-29 12:10] LABS: BARBITURATES NEG (NEG); BENZODIAZEPINES NEG (NEG); CANNABINOIDS NEG (NEG); COCAINE NEG (NEG); METHADONE NEG (NEG); OPIATES NEG (NEG); PHENCYCLIDINE NEG (NEG)
[2020-12-29 12:11] LABS: AMPHETAMINE/METHAMPHETAMINE NEG (NEG)
[2020-12-29 12:16] LABS: BILIRUBIN,URINE SMALL (NEG); CLARITY,URINE HAZY; COLOR,URINE AMBER; GLUCOSE,URINE NEG (NEG); NITRITE,URINE NEG (NEG)
[2020-12-29 12:18] LABS: BACTERIA,URINE MOD /HPF (0-FEW); RBC,URINE 0 /HPF (0-2); SQUAMOUS EPITHELIAL CELL,UR MOD /LPF; WBC,URINE OCC /HPF (0-4)
--- NOTE | 2020-12-29 12:43 | PHYS DOC ---
Past History Past Medical History: Alcoholism, Other Additional Past Medical Histor: underlying CP Past Surgical History: No Surgical History Smoking: Non-smoker Alcohol Use: None Drug Use: None Adult General Chief Complaint Chief Complaint: HALLUCINATIONS AUDIBLE/VISUAL HPI HPI Patient is a 35-year-old female who presents to the emergency room after being sent by her public health social worker. Patient has history of schizophrenia. She was discharged home from a facility earlier this week. Her public health social worker went to check on her and found that patient was hallucinating patient states she believes she was shot in the leg. Patient denies any homicidal or suicidal ideations. Her public health social worker does not feel that she is safe at home. Review of Systems Review of Systems Complete ROS is negative unless otherwise documented in HPI Allergies Allergies Allergies Coded Allergies Type Severity Reaction Last Updated Verified No Known Drug Allergies 12/08/20 No Physical Exam Physical Exam General: Awake, alert, NAD. Well Nourished, well hydrated. Cooperative HEENT: Atraumatic, EOMI, PERRL, airway patent, moist oral mucosa Neck: Supple, trachea midline Respiratory: CTA bilaterally, normal effort, no wheezing/crackles CV: RRR, no murmur, cap refill <2 GI: Soft, nondistended, nontender, no masses MSK: No obvious deformities Skin: Warm, dry, intact Neuro: A&O x3, speech NL, sensory and motor grossly intact, no focal deficits Psych: Hallucinating, paranoid Current Patient Data Vital Signs Vital Signs Date Time Temp Pulse Resp B/P (MAP) Pulse Ox O2 Delivery O2 Flow Rate FiO2 12/29/20 11:23 98.5 97 18 109/81 96 Room Air Lab Results Laboratory Tests Test 12/29/20 11:21 12/29/20 11:45 12/29/20 11:57 White Blood Count 12.9 x10^3/uL (4.0-11.0) H Red Blood Count 4.96 x10^6/uL (3.50-5.40) Hemoglobin 14.8 g/dL (12.0-15.5) Hematocrit 44.5 % (36.0-47.0) Mean Corpuscular Volume 90 fL (79-100) Mean Corpuscular Hemoglobin 30 pg (25-35) Mean Corpuscular Hemoglobin Concent 33 g/dL (31-37) Red Cell Distribution Width 13.0 % (11.5-14.5) Platelet Count 370 x10^3/uL (140-400) Neutrophils (%) (Auto) 68 % (31-73) Lymphocytes (%) (Auto) 24 % (24-48) Monocytes (%) (Auto) 7 % (0-9) Eosinophils (%) (Auto) 0 % (0-3) Basophils (%) (Auto) 0 % (0-3) Neutrophils # (Auto) 8.8 x10^3uL (1.8-7.7) H Lymphocytes # (Auto) 3.1 x10^3/uL (1.0-4.8) Monocytes # (Auto) 0.9 x10^3/uL (0.0-1.1) Eosinophils # (Auto) 0.0 x10^3/uL (0.0-0.7) Basophils # (Auto) 0.0 x10^3/uL (0.0-0.2) Sodium Level 143 mmol/L (136-145) Potassium Level 3.6 mmol/L (3.5-5.1) Chloride Level 103 mmol/L (98-107) Carbon Dioxide Level 26 mmol/L (21-32) Anion Gap 14 (6-14) Blood Urea Nitrogen 12 mg/dL (7-20) Creatinine 0.8 mg/dL (0.6-1.0) Estimated GFR (Cockcroft-Gault) 80.7 BUN/Creatinine Ratio 15 (6-20) Glucose Level 89 mg/dL (70-99) Calcium Level 9.5 mg/dL (8.5-10.1) Total Bilirubin 0.5 mg/dL (0.2-1.0) Aspartate Amino Transferase (AST) 21 U/L (15-37) Alanine Aminotransferase (ALT) 24 U/L (14-59) Alkaline Phosphatase 97 U/L (46-116) Total Protein 7.6 g/dL (6.4-8.2) Albumin 3.7 g/dL (3.4-5.0) Albumin/Globulin Ratio 0.9 (1.0-1.7) L Ethyl Alcohol Level < 10 mg/dL (0-10) Urine Collection Type Unknown Urine Color [place] Urine Clarity Hazy Urine pH 6.5 Urine Specific [place] >=1.030 Urine Protein 30 mg/dl (NEG-TRACE) Urine Glucose (UA) Neg mg/dL (NEG) Urine Ketones (Stick) Trace mg/dL (NEG) Urine Blood Neg (NEG) Urine Nitrite Neg (NEG) Urine Bilirubin Small (NEG) Urine Urobilinogen Dipstick 1.0 mg/dL (0.2 mg/dL) Urine Leukocyte Esterase Neg (NEG) Urine RBC 0 /HPF (0-2) Urine WBC Occ /HPF (0-4) Urine Squamous Epithelial Cells Mod /LPF Urine Bacteria Mod /HPF (0-FEW) Urine Opiates Screen Neg (NEG) Urine Methadone Screen Neg (NEG) Urine Barbiturates Neg (NEG) Urine Phencyclidine Screen Neg (NEG) Urine Amphetamine/Methamphetamine Neg (NEG) Urine Benzodiazepines Screen Neg (NEG) Urine Cocaine Screen Neg (NEG) Urine Cannabinoids Screen Neg (NEG) Urine Ethyl Alcohol Neg (NEG) POC Urine HCG, Qualitative hcg negative (Negative) EKG EKG [] Radiology/Procedures Radiology/Procedures [] Heart Score C/O Chest Pain: N/A Risk Factors: Risk Factors: DM, Current or recent (<one month) smoker, HTN, HLP, family history of CAD, obesity. Risk Scores: Risk Factors: DM, Current or recent (<one month) smoker, HTN, HLP, family history of CAD, obesity. Course & Med Decision Making Course & Med Decision Making Pertinent Labs and Imaging studies reviewed. (See chart for details) Patient is a 35-year-old with a history of schizophrenia who presents to the Emergency Room with hallucinations. Upon arrival the the Emergency Room, patient was changed into a gown and personal belongings were taken to security for safety. Patient was placed on a one-on-one. Lab work was ordered if requested by psychiatric team. PAT team was consulted for evaluation. After discussion with PAT team the decision was made to pursue outpatient resources. The pat team knows the patient well and states that she is at her baseline and does not a ppear to have any significant changes since she was discharged from [facility] on Tuesday. Safety plan was done. Patient's test results and vitals while in the ED were fully reviewed and discussed with the patient. Patient is stable and at this time does not need admission to the hospital. We have discussed strict return precautions and the importance of following up with their Primary Care Physician. Patient stated understanding and was given an opportunity to ask any questions. Patient is in agreement with plan. Dragon Disclaimer Dragon Disclaimer This electronic medical record was generated, in whole or in part, using a voice recognition dictation system. Departure Departure: Impression: Primary Impression: Psychosis Disposition: HOME / SELF CARE / HOMELESS Condition: STABLE Referrals: LONNIE RUIZ MD (PCP) Patient Instructions: Schizophrenia ASHLEY MCDONALD MD Dec 29, 2020 12:42
[2020-12-29] MEDS ORDERED: NYSTATIN 100,000 UNIT/GM TOPICAL CREAM 15GM TUBE. TP ONE (13:30)
[2020-12-29] MEDS ORDERED: NYSTATIN TOPICAL POWDER 15GM BOTTLE. TP ONE (13:45)
[2020-12-29 15:22] VITALS: BP 116/72
== END 2020-12-29 16:15 | disposition home or self-care (01) ==
LOC: ER 11:02
DX: F29 Unspecified psychosis not due to a substance or known physiological condition (principal); F20.9 Schizophrenia, unspecified; F10.20 Alcohol dependence, uncomplicated; Y90.0 Blood alcohol level of less than 20 mg/100 ml
CPT/HCPCS: 36415; 80053; 80307; 81001; 81025; 85025; 87086; 99283; G0480

== ENCOUNTER 2021-01-05 22:52 | Emergency (ER) | payer OTHER, MEDICAID ==
[~2021-01-05] VITALS: Ht 157.5 cm; Wt 83.0 kg
--- NOTE | 2021-01-06 00:15 | PHYS DOC ---
Past History Past Medical History: Alcoholism, Other Additional Past Medical Histor: underlying CP Past Surgical History: No Surgical History Smoking: Non-smoker Alcohol Use: None Drug Use: None General Adult EDM: Chief Complaint: SHORTNESS OF BREATH HPI: HPI: ".. I think .. I having allergy issues.. and I smell burning rubber in the aprt. complex.. " "..I just wanted to get checked out.." Patient is a 35 year old female who presents with above hx and complaints of possible exposure to burning rubber smell in her apt. complex. Patient complains of some wheezing after being exposed to the smell. Patient denies any recent travel. Patient denies any specific ill contacts. Does have a past history of alcohol abuse, schizophrenia with hallucinations both auditory and visual, and cerebral palsy.. Patient is a non-smoker. Patient does follow with the counseling center and Dr. Young. Patient recently seen on 12/29 for increased hallucinations both audible and visual. Pt. was evaluated by Annika at that time. Patient has not followed with Dr. Young or the counseling center since that visit. Review of Systems: Review of Systems: Constitutional: Denies fever or chills Eyes: Denies change in visual acuity HENT: Complaints she has smell of burning rubber. Respiratory: Complains of wheezing after smelling burning rubber Cardiovascular: Denies chest pain or edema GI: Denies abdominal pain, nausea, vomiting, bloody stools or diarrhea : Denies dysuria Musculoskeletal: Denies back pain or joint pain Integument: Denies rash Neurologic: Denies headache, focal weakness or sensory changes Endocrine: Denies polyuria or polydipsia Lymphatic: Denies swollen glands Psychiatric: Denies depression or anxiety Family History: Family History: Noncontributory to presentation Current Medications: Current Meds: See nursing for home meds Allergies: Allergies: Allergies Coded Allergies Type Severity Reaction Last Updated Verified No Known Drug Allergies 12/08/20 No Physical Exam: PE: Constitutional: , no acute distress, non-toxic appearance. [] HENT: Normocephalic, atraumatic, bilateral external ears normal, oropharynx moist, no oral exudates, nose normal. Poor dentition Eyes: PERRLA, EOMI, conjunctiva normal, no discharge. [] Neck: Normal range of motion, no tenderness, supple, no stridor. [] Cardiovascular:Heart rate regular rhythm, no murmur [] Lungs & Thorax: Bilateral breath sounds equal apex with few scattered wheezes on auscultation [] Abdomen: Bowel sounds normal, soft, no tenderness, no masses, no pulsatile masses. [] Skin: Warm, dry, no erythema, no rash. [] Back: No tenderness, no CVA tenderness. [] Extremities: No tenderness, no cyanosis, no clubbing, no edema. Chronic Bilateral leg [id number] new findings Neurologic: Alert and oriented X 3, normal motor function, normal sensory function, no focal deficits noted. [] Psychologic: Affect anxious, judgement normal, mood normal. Does admit to recent hallucinations and delusions. Patient denies any suicidal ideation. Patient denies any homicidal ideation EKG: EKG: [] Radiology/Procedures: Radiology/Procedures: [] Heart Score: C/O Chest Pain: N/A Risk Factors: Risk Factors: DM, Current or recent (<one month) smoker, HTN, HLP, family history of CAD, obesity. Risk Scores: Score 0 - 3: 2.5% MACE over next 6 weeks - Discharge Home Score 4 - 6: 20.3% MACE over next 6 weeks - Admit for Clinical Observation Score 7 - 10: 72.7% MACE over next 6 weeks - Early Invasive Strategies Course & Med Decision Making: Course & Med Decision Making Pertinent Labs and Imaging studies reviewed. (See chart for details) Patient did report decreased wheezing after MDI treatment. Patient use MDI 2 puffs 4 times a day. Begged patient to keep follow-up with counseling center and her primary care Dr. Young. Patient advised to have a fire apartment to check her apartment for possible CO leak or the complex for sources of burning rubber smell. Did discuss with patient possibility that this may be a hallucination. Impression: 1. Complaints of wheezing after possible exposure to smoke 2. Hx. of schizophrenia 3. History of hallucinations both audible and visual 4. History of noncompliance 5. Hx. paranoid delusions [] L[place]on Disclaimer: Shivani Disclaimer: This electronic medical record was generated, in whole or in part, using a voice recognition dictation system. Departure Departure: Referrals: LONNIE YOUNG MD (PCP) Shivani Disclaimer This chart was dictated in whole or in part using Voice Recognition software in a busy, high-work load, and often noisy Emergency Department environment. It may contain unintended and wholly unrecognized errors or omissions. JEFF DOMINGO MD Jan 06, 2021 00:15
[2021-01-06] MEDS ORDERED: ALBUTEROL SULFATE 8GM INHALER. INH ONE (02:30)
[2021-01-06 03:26] VITALS: BP 102/70
== END 2021-01-06 03:35 | disposition home or self-care (01) ==
LOC: ER 22:52
DX: R06.2 Wheezing (principal); F20.9 Schizophrenia, unspecified; F10.20 Alcohol dependence, uncomplicated; Y90.9 Presence of alcohol in blood, level not specified
CPT/HCPCS: 94640; 99285; 94664

== ENCOUNTER 2021-01-09 20:32 | Emergency (ER) | payer OTHER, MEDICAID ==
[~2021-01-09] VITALS: Ht 152.4 cm; Wt 85.5 kg
--- NOTE | 2021-01-09 20:54 | PHYS DOC ---
Past History Past Medical History: Alcoholism, Other Additional Past Medical Histor: underlying CP Past Surgical History: No Surgical History Smoking: Non-smoker Alcohol Use: None Drug Use: None Adult General Chief Complaint Chief Complaint: PSYCH EVALUATION HPI HPI Patient is a 35-year-old female with a past medical history significant for anxiety, depression, alcoholism and bipolar who presents to the emergency department via EMS at the request of her family after acting strange. Per EMS and family she was texting nude pictures of herself to family members. Review of Systems Review of Systems Review of systems otherwise unremarkable except noted in HPI Allergies Allergies Allergies Coded Allergies Type Severity Reaction Last Updated Verified No Known Drug Allergies 12/08/20 No Physical Exam Physical Exam Constitutional: Well developed, well nourished, no acute distress, non-toxic appearance. [] HENT: Normocephalic, atraumatic, bilateral external ears normal, oropharynx moist, no oral exudates, nose normal. [] Eyes: PERRLA, EOMI, conjunctiva normal, no discharge. [] Neck: Normal range of motion, no tenderness, supple, no stridor. [] Cardiovascular:Heart rate regular rhythm, no murmur [] Lungs & Thorax: Bilateral breath sounds clear to auscultation [] Abdomen: Bowel sounds normal, soft, no tenderness, no masses, no pulsatile masses. [] Skin: Warm, dry, no erythema, no rash. [] Back: No tenderness, no CVA tenderness. [] Extremities: No tenderness, no cyanosis, no clubbing, ROM intact, no edema. [] Neurologic: Alert and oriented X 3, normal motor function, normal sensory function, no focal deficits noted. [] Psychologic: Affect normal, judgement abnormal, mood normal. [] Current Patient Data Vital Signs Vital Signs Date Time Temp Pulse Resp B/P (MAP) Pulse Ox O2 Delivery O2 Flow Rate FiO2 01/09/21 20:35 99.1 96 16 138/86 97 Room Air EKG EKG [] Radiology/Procedures Radiology/Procedures [] Heart Score C/O Chest Pain: No Risk Factors: Risk Factors: DM, Current or recent (<one month) smoker, HTN, HLP, family history of CAD, obesity. Risk Scores: Risk Factors: DM, Current or recent (<one month) smoker, HTN, HLP, family history of CAD, obesity. Course & Med Decision Making Course & Med Decision Making Patient is a 35-year-old female who presented for inappropriate behavior at home, at the request of family brought by EMS Vital signs not concerning. Physical exam noted above. Patient alert and oriented in no acute distress with no focal neurologic deficits. Patient friendly, and cooperative and denies any suicidal ideation, homicidal ideation, and hallucinations. Patient adamantly denies sending any pictures over her cell phone to any family members and states that it is her aunt who is unwell and is always making up things about her. Patient states that she is doing well, is going to counseling right now for her anxiety, depression and bipolar and is 100% not suicidal, not homicidal and definitely not hallucinating. She adamantly denies any any such takes her pictures and offered her phone up for investigation. States that she feels well and was ready to be discharged home and asked for us to call her cab. Advised to follow-up with primary care physician first thing Tuesday as well as her therapist. Gave strict return precautions to the ED. Gave her community resources and went over them with her. Patient grateful, verbalized understanding and agreed with plan of discharge. [] Dragon Disclaimer Dragon Disclaimer This electronic medical record was generated, in whole or in part, using a voice recognition dictation system. Departure Departure: Impression: Primary Impression: Well adult health check Disposition: HOME / SELF CARE / HOMELESS Condition: GOOD Referrals: LONNIE RUIZ MD (PCP) Additional Instructions: Thank you for coming into the emergency department tonight and allowing us to take care of you. Your physical exam was reassuring. You adamantly denied any suicidal ideations, homicidal ideations and hallucinations. You stated that she did not send any inappropriate text to anybody and stated that it was your aunt who was unwell and was saying untrue things about you. You stated that you were doing well and are doing well in therapy. You felt that you were safe to discharge home and asked this for a cab. As we discussed, please call your prim [place] care physician first thing Tuesday as well as your therapist to update on your ED visit and set up appointments as soon as possible. As discussed, the emergency department is open 24 hours a day and you can come back here at any time if you have any concerning or new symptoms. You are also given a packet of community resources and went over it with you. OTONIEL DHILLON MD Jan 09, 2021 20:54
[2021-01-09 22:23] VITALS: BP 124/70
== END 2021-01-09 22:43 | disposition home or self-care (01) ==
LOC: ER 20:32
DX: F41.9 Anxiety disorder, unspecified (principal); F32.9 Major depressive disorder, single episode, unspecified; F10.20 Alcohol dependence, uncomplicated; Y90.9 Presence of alcohol in blood, level not specified
CPT/HCPCS: 99283

== ENCOUNTER 2021-01-10 12:50 | Emergency (ER) | payer OTHER, MEDICAID ==
[~2021-01-10] VITALS: Ht 152.4 cm; Wt 85.5 kg
--- NOTE | 2021-01-10 13:49 | RAD ---
AP portable chest radiograph 01/10/2021 Clinical History: Chest pain. An AP erect portable digital radiograph of the chest was obtained. The cardiac and mediastinal silhouettes are within normal limits in size and configuration. No pulmon judy infiltrate is seen. No pleural effusion or pneumothorax is noted. The osseous structures are shefali sly intact. IMPRESSION: No acute abnormality is seen. Electronically signed by: Gerardo Zuñiga MD (01/10/2021 1:46 PM) [id number]
--- NOTE | 2021-01-10 13:54 | PHYS DOC ---
Past History Past Medical History: Alcoholism, Other Additional Past Medical Histor: underlying CP Past Surgical History: Tonsillectomy Smoking: Non-smoker Alcohol Use: Occasionally Drug Use: None General Adult EDM: Chief Complaint: SHORTNESS OF BREATH HPI: HPI: Patient is a 35-year-old female who presents with chest pain that radiates through to her back and shortness of breath. Patient states that she has had the symptoms for the past month. Patient reports that symptoms are constant. Patient states "I have been sick with a cough recently. "The air conditioner is either too hot or too cold which makes me short of breath". Denies anything making it worse or better. Denies taking anything for symptoms at home. Patient has a history of schizophrenia, bipolar, depression. Review of Systems: Review of Systems: Constitutional: Denies fever or chills Eyes: Denies change in visual acuity HENT: Denies nasal congestion or sore throat Respiratory: Reports cough and shortness of Cardiovascular: Reports chest pain GI: Denies abdominal pain, nausea, vomiting, bloody stools or diarrhea : Denies dysuria Musculoskeletal: Reports back pain Integument: Denies rash Neurologic: Denies headache, focal weakness or sensory changes Endocrine: Denies polyuria or polydipsia Lymphatic: Denies swollen glands Psychiatric: Denies depression or anxiety Allergies: Allergies: Allergies Coded Allergies Type Severity Reaction Last Updated Verified No Known Drug Allergies 12/08/20 No Physical Exam: PE: Constitutional: Well developed, well nourished, no acute distress, non-toxic appearance. [] HENT: Normocephalic, atraumatic, bilateral external ears normal, oropharynx moist, no oral exudates, nose normal. [] Eyes: PERRLA, EOMI, conjunctiva normal, no discharge. [] Neck: Normal range of motion, no tenderness, supple, no stridor. [] Cardiovascular:Heart rate regular rhythm, no murmur [] Lungs & Thorax: Bilateral breath sounds clear to auscultation [] Abdomen: Bowel sounds normal, soft, no tenderness, no masses, no pulsatile mas ses. [] Skin: Warm, dry, no erythema, no rash. [] Back: No tenderness, no CVA tenderness. [] Extremities: No tenderness, no cyanosis, no clubbing, ROM intact, no edema. [] Neurologic: Alert and oriented X 3, normal motor function, normal sensory function, no focal deficits noted. [] Psychologic: Affect normal, judgement normal, mood normal. [] Current Patient Data: Vital Signs: Vital Signs Date Time Temp Pulse Resp B/P (MAP) Pulse Ox O2 Delivery O2 Flow Rate FiO2 01/10/21 12:55 97.5 96 20 133/67 96 Room Air EKG: EKG: [] Radiology/Procedures: Radiology/Procedures: [] AP portable chest radiograph 01/10/2021 Clinical History: Chest pain. An AP erect portable digital radiograph of the chest was obtained. The cardiac and mediastinal silhouettes are within normal limits in size and configuration. No pulmonary infiltrate is seen. No pleural effusion or pneumothorax is noted. The osseous structures are grossly intact. IMPRESSION: No acute abnormality is seen. Electronically signed by: Gerardo Zuñiga MD (01/10/2021 1:46 PM) [id number] EXAMINATION: CTA CHEST CLINICAL HISTORY: Shortness of breath Technique: Spiral CT acquisition of the chest from the thoracic inlet to the upper abdomen following IV contrast with coronal and sagittal reformatted images also provided for review. 3D maximum intensity projection images also performed. CT Dose Reduction Employed: One or more of the following individualized dose reduction techniques were utilized for this examination: 1. Automated exposure control 2. Adjustment of the mA and/or kV according to patient size 3. Use of iterative reconstruction technique. Comparison: Chest radiograph same day FINDINGS: Not ideal opacification of the pulmonary arterial system and respiratory motion limits evaluation. Pulmonary Vasculature: No definitive evidence of main or lobar pulmonary arterial thrombus. Increased density at the bifurcation of the right main pulmonary artery without definitively visualized intraluminal thrombus, though streak artifact from dense contrast in the SVC also limits evaluation at this level. Lung Parenchyma, Pleura, and Airways: No focal airspace consolidation. 1.1 x 1.0 cm subpleural solid pulmonary nodule in the medial right lower lobe (series 4 image 61). 4 mm solid pulmonary nodule in the lateral right lower lobe (series 4 image 66). 4 mm solid pulmonary nodule in the lateral left lower lobe (series 4 image 65). Mild interlobular septal thickening in the lower lobes, cannot exclude mild interstitial edema. No pleural effusion. Central airways patent. Lower Neck, Lymph Nodes, and Mediastinum: Visualized thyroid gland within normal limits. Enlarged right paratracheal lymph nodes measuring up to 1.1 cm in short axis and prominent bilateral axillary lymph nodes, nonspecific but may be reactive. Heart, Pericardium, and Thoracic Vessels: Cardiac chambers normal in size. No pericardial effusion. Thoracic aorta within normal limits. No coronary artery atherosclerotic calcifications are noted, although the study is not optimized for coronary assessment. Bones and Soft Tissues: No evidence of acute osseous abnormality. Upper Abdomen: Moderate hiatal hernia. IMPRESSION: No definite main or lobar pulmonary embolism on limited evaluation as described. Questionable mild interstitial edema. Several pulmonary nodules measuring up to 1.1 cm as described, recommend follow- up CT chest in 3-6 months. Mild mediastinal and borderline axillary lymphadenopathy, nonspecific. Electronically signed by: Costa Lancaster DO (01/10/2021 4:37 PM) [facility] Heart Score: C/O Chest Pain: Yes HEART Score for Chest Pain: HEART Score for Chest Pain Response (Comments) Value History Slighlty/Non-Suspicious 0 ECG Normal 0 Age < 45 0 Risk Factors No Risk Factors 0 Troponin < Normal Limit 0 Total 0 Risk Factors: Risk Factors: DM, Current or recent (<one month) smoker, HTN, HLP, family history of CAD, obesity. Risk Scores: Score 0 - 3: 2.5% MACE over next 6 weeks - Discharge Home Score 4 - 6: 20.3% MACE over next 6 weeks - Admit for Clinical Observation Score 7 - 10: 72.7% MACE over next 6 weeks - Early Invasive Strategies Course & Med Decision Making: Course & Med Decision Making Pertinent Labs and Imaging studies reviewed. (See chart for details) [] 35-year-old female who presents with chest pain that radiates through to her back along with shortness of breath. Patient states that symptoms have been constant for the past month. Patient has been seen multiple times this month for different complaints, including hallucinations and a psych evaluation. Patient has a history of schizophrenia, bipolar disorder, depression. Heart score of 0. Troponin negative. D-dimer 0.53. CTA ordered to rule out PE. UA is negative. Chest x-ray unremarkable. All other labs unremarkable. Several pulmonary nodules , recommend follow-up CT chest in 3-6 months. Negative for PE. Discussed CT results with patient. Patient instructed to follow-up with PCP. Patient is hemodynamically stable upon discharge. Dragon Disclaimer: [employer] Disclaimer: This electronic medical record was generated, in whole or in part, using a voice recognition dictation system. Departure Departure: Impression: Primary Impression: Chest pain Qualified Codes: R07.9 - Chest pain, unspecified Additional Impression: Shortness of breath Disposition: 01 HOME / SELF CARE / HOMELESS Condition: STABLE Referrals: LONNIE RUIZ MD (PCP) Patient Instructions: Shortness of Breath, [id number] Additional Instructions: You are seen in the emergency room for shortness of breath and chest pain for the past month. All of your labs were unremarkable. Your CT does show some nodules in your lungs. It is recommended that you follow-up in 3 to [address] repeat [address] to reevaluate. Please return to the emergency room if you have worsening symptoms or concerns. EMERGENCY DEPARTMENT GENERAL DISCHARGE INSTRUCTIONS Thank you for coming to [facility] (ED) today and trusting us with you care. We trust that you had a positivie experience in our Emergency Department. If you wish to speak to the department management, you may call the director at [phone]. YOUR FOLLOW UP INSTRUCTIONS ARE FOLLOWS: 1. Do you have a private Doctor? If you do not have a private doctor, please ask for a resource list of physicians or clinics that may be able to assist you with follo w up care. 2. The Emergency Physician has interpreted your x-rays. The X-Ray specialist will also review them. If there is a change in the findings, you will be notified in 48 hours when at all possible. 3. A lab test or culture has been done, your results will be reviewed and you will be notified if you need a change in treatment. ADDITIONAL INSTRUCTIONS AND INFORMATION: 1. Your care today has been supervised by a physician who is specially trained in emergency care. Many problems require more than one evaluation for a complete diagnosis and treatment. We recommend that you schedule your follow up appointment as rec ommended to ensure complete treatment of you illness or injury. If you are unable to obtain follow up care and continue to have a problem, or if your condition worsens, we recommend that you return to the ED. 2. We are not able to safely determine your condition over the phone nor are we able to give sound medical advice over the phone. For these safety reasons, if you call for medical advice we will ask you to come to the ED for further evaluation. 3. If you have any questions regarding these discharge instructions please call the ED at [phone]. SAFETY INFORMATION: In the interest of safety, wellness, and injury prevention; we encourage you to wear your sealbelt, if you smoke; quite smoking, and we encourage family to use a protective helmet for bicycling and other sporting events that present an increased risk for head injury. IF YOUR SYMPTOMS WORSEN OR NEW SYMPTOMS DEVELOP, OR YOU HAVE CONCERNS ABOUT YOUR CONDITION; OR IF YOUR CONDITION WORSENS WHILE YOU ARE WAITING FOR YOUR FOLLOW UP APPOINTMENT; EITHER CONTACT YOUR PRIMARY CARE DOCTOR, THE PHYSICIAN WHOSE NAME AND NUMBER YOU WERE GIVEN, OR RETURN TO THE ED IMMEDIATELY. HOME HERZOG APRN Jan 10, 2021 13:54
[2021-01-10 14:28] LABS: BASO # 0.1 x10^3/uL (0.0-0.2); BASO % 1 % (0-3); EOS % 0 % (0-3); HEMATOCRIT 42.2 % (36.0-47.0); LYMPH # 3.4 x10^3/uL (1.0-4.8); LYMPH % 29 % (24-48); MEAN CORPUSCULAR HEMOGLOBIN 30 pg (25-35); MEAN CORPUSCULAR HGB CONC 33 g/dL (31-37); MEAN CORPUSCULAR VOLUME 90 fL (79-100); MONO # 0.8 x10^3/uL (0.0-1.1); MONO % 7 % (0-9); NEUT # 7.4 x10^3uL (1.8-7.7); NEUT % 63 % (31-73); PLATELET COUNT 273 x10^3/uL (140-400); RED BLOOD COUNT 4.69 x10^6/uL (3.50-5.40); RED CELL DISTRIBUTION WIDTH 13.1 % (11.5-14.5); WHITE BLOOD COUNT 11.8 x10^3/uL (4.0-11.0)
[2021-01-10 14:41] LABS: CALCIUM 8.6 mg/dL (8.5-10.1); CREATININE 0.8 mg/dL (0.6-1.0); GFR 80.7
[2021-01-10 15:11] LABS: U PREG PATIENT NEGATIVE (NEG)
[2021-01-10 15:14] LABS: BILIRUBIN,URINE NEG (NEG); CLARITY,URINE HAZY; COLOR,URINE YELLOW; GLUCOSE,URINE NEG (NEG); NITRITE,URINE NEG (NEG); UROBILINOGEN,URINE 0.2 mg/dL (0.2 mg/dL)
[2021-01-10] MEDS ORDERED: IOHEXOL 350 MG/ML 100 ML VIAL. IV ONE (15:15)
[2021-01-10 15:17] LABS: BACTERIA,URINE FEW /HPF (0-FEW); RBC,URINE RARE /HPF (0-2); SQUAMOUS EPITHELIAL CELL,UR FEW /LPF
--- NOTE | 2021-01-10 16:40 | RAD ---
EXAMINATION: CTA CHEST CLINICAL HISTORY: Shortness of breath Technique: Spiral CT acquisition of the chest from the thoracic inlet to the upper abdomen following IV contrast with coronal and sagittal reformatted images also provided for review. 3D maximum intensi ty projection images also performed. CT Dose Reduction Employed: One or more of the following individualized dose reduction techniques wer e utilized for this examination: 1. Automated exposure control 2. Adjustment of the mA and/or kV ac cording to patient size 3. Use of iterative reconstruction technique. Comparison: Chest radiograph same day FINDINGS: Not ideal opacification of the pulmonary arterial system and respiratory motion limits evaluation. Pulmonary Vasculature: No definitive evidence of main or lobar pulmonary arterial thrombus. Increased density at the bifurcation of the right main pulmonary artery without definitively visualized intral uminal thrombus, though streak artifact from dense contrast in the SVC also limits evaluation at this level. Lung Parenchyma, Pleura, and Airways: No focal airspace consolidation. 1.1 x 1.0 cm subpleural solid pulmonary nodule in the medial right lower lobe (series 4 image 61). 4 mm solid pulmonary nodule in t he lateral right lower lobe (series 4 image 66). 4 mm solid pulmonary nodule in the lateral left lowe r lobe (series 4 image 65). Mild interlobular septal thickening in the lower lobes, cannot exclude mi ld interstitial edema. No pleural effusion. Central airways patent. Lower Neck, Lymph Nodes, and Mediastinum: Visualized thyroid gland within normal limits. Enlarged rig ht paratracheal lymph nodes measuring up to 1.1 cm in short axis and prominent bilateral axillary lym ph nodes, nonspecific but may be reactive. Heart, Pericardium, and Thoracic Vessels: Cardiac chambers normal in size. No pericardial effusion. T horacic aorta within normal limits. No coronary artery atherosclerotic calcifications are noted, alth ough the study is not optimized for coronary assessment. Bones and Soft Tissues: No evidence of acute osseous abnormality. Upper Abdomen: Moderate hiatal hernia. IMPRESSION: No definite main or lobar pulmonary embolism on limited evaluation as described. Questionable mild interstitial edema. Several pulmonary nodules measuring up to 1.1 cm as described, recommend follow-up CT chest in 3-6 mo nths. Mild mediastinal and borderline axillary lymphadenopathy, nonspecific. Electronically signed by: Costa Lancaster DO (01/10/2021 4:37 PM) [facility]
[2021-01-10 17:27] VITALS: BP 133/94
--- NOTE | 2021-01-12 11:55 | EKG ---
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
== END 2021-01-10 17:55 | disposition home or self-care (01) ==
LOC: ER 12:50
DX: R07.89 Other chest pain (principal); R06.02 Shortness of breath; Z20.822 Contact with and (suspected) exposure to COVID-19
CPT/HCPCS: 71045; 71275; 80048; 81001; 81025; 84484; 85025; 85379; 93005; 99285; C9803; Q9967; U0003

== ENCOUNTER 2021-01-12 04:06 | Emergency (ER) | payer OTHER, MEDICAID ==
[~2021-01-12] VITALS: Ht 152.4 cm; Wt 84.0 kg
[2021-01-12 04:10] VITALS: BP 123/70
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
[2021-01-12] MEDS ORDERED: LIDOCAINE (700MG/PATCH) PATCH. TD SCH (04:27)
[2021-01-12] MEDS ORDERED: IBUPROFEN 600 MG TABLET. PO ONE (04:30)
[2021-01-12] MEDS ORDERED: oxyCODONE/APAP 5/325 1 TAB TABLET PO ONE (04:30)
[2021-01-12] MEDS ORDERED: FLUCONAZOLE 100 MG TABLET. PO ONE (04:45)
[2021-01-12] MEDS ORDERED: NYSTATIN 100,000 UNIT/GM TOPICAL CREAM 15GM TUBE. TP ONE (04:45)
--- NOTE | 2021-01-12 05:21 | RAD ---
EXAMINATION: Chest radiograph. VIEWS: Single view COMPARISON: CT dated 01/10/2021 INDICATION:35 years, Female, chest wall pain. FINDINGS: Normal cardiomediastinal silhouette. No focal consolidation. No pleural effusion or pneumothorax. No acute osseous process. IMPRESSION: No acute cardiopulmonary process. Electronically signed by: Humberto Loza MD (01/12/2021 5:19 AM) [facility]
--- NOTE | 2021-01-12 11:44 | EKG ---
[facility] ED [facility] [place] [id number] Test Date: 2021-01-12 Test Time: 04:29:45 Pat Name: RASHMI LEHMAN Department: Room: Gender: F Accounting Recruiter: KOMAL : 1985 Requested By: OTONIEL DHILLON Order Number: [id number] Reading MD: Measurements Intervals [place] Rate: 87 P: 26 VT: 148 QRS: -18 QRSD: 70 T: 19 QT: 350 QTc: 427 Interpretive Statements SINUS RHYTHM LEFTWARD AXIS R-S TRANSITION ZONE IN V LEADS DISPLACED TO THE LEFT OTHERWISE NORMAL ECG RI6.02 No previous ECG available for comparison
[2021-01-12] MEDS ORDERED: PATCH REMOVAL. MC SCH (21:00)
== END 2021-01-12 05:07 | disposition home or self-care (01) ==
LOC: ER 04:06
DX: R07.2 Precordial pain (principal); F10.20 Alcohol dependence, uncomplicated; Y90.9 Presence of alcohol in blood, level not specified
CPT/HCPCS: 71045; 93005; 99284

== ENCOUNTER 2021-01-25 13:03 | Emergency (ER) | payer OTHER, MEDICAID ==
[~2021-01-25] VITALS: Ht 152.4 cm; Wt 84.0 kg
[2021-01-25 13:12] VITALS: BP 140/89
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
== END 2021-01-25 13:24 | disposition home or self-care (01) ==
LOC: ER 13:03
DX: M54.5 Low back pain (principal)
CPT/HCPCS: 99281

== ENCOUNTER 2021-01-28 21:51 | Emergency (ER) | payer OTHER, MEDICAID ==
[~2021-01-28] VITALS: Ht 152.4 cm; Wt 85.3 kg
[2021-01-28] MEDS ORDERED: IV NORMAL SALINE 1,000ML 1,000 ML IV ONE (22:00)
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
[2021-01-28 22:34] LABS: BASO % 0 % (0-3); EOS % 0 % (0-3); HEMATOCRIT 40.6 % (36.0-47.0); HEMOGLOBIN 13.5 g/dL (12.0-15.5); LYMPH # 3.9 x10^3/uL (1.0-4.8); LYMPH % 29 % (24-48); MEAN CORPUSCULAR HEMOGLOBIN 30 pg (25-35); MEAN CORPUSCULAR HGB CONC 33 g/dL (31-37); MEAN CORPUSCULAR VOLUME 89 fL (79-100); MONO # 1.1 x10^3/uL (0.0-1.1); MONO % 8 % (0-9); NEUT # 8.7 x10^3uL (1.8-7.7); NEUT % 63 % (31-73); PLATELET COUNT 304 x10^3/uL (140-400); RED BLOOD COUNT 4.55 x10^6/uL (3.50-5.40); RED CELL DISTRIBUTION WIDTH 13.2 % (11.5-14.5); WHITE BLOOD COUNT 13.7 x10^3/uL (4.0-11.0)
[2021-01-28 22:43] LABS: CALCIUM 8.9 mg/dL (8.5-10.1); CREATININE 0.7 mg/dL (0.6-1.0); GFR 94.2; POTASSIUM 3.7 mmol/L (3.5-5.1)
[2021-01-28 22:49] LABS: ALBUMIN 3.7 g/dL (3.4-5.0); ALBUMIN/GLOBULIN RATIO 1.2 (1.0-1.7); TOTAL BILIRUBIN 0.3 mg/dL (0.2-1.0); TOTAL PROTEIN 6.7 g/dL (6.4-8.2)
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
[2021-01-28 23:40] VITALS: BP 126/71
== END 2021-01-28 23:45 | disposition home or self-care (01) ==
LOC: ER 21:51
DX: R55 Syncope and collapse (principal); R10.84 Generalized abdominal pain; M54.2 Cervicalgia; F10.20 Alcohol dependence, uncomplicated; Y90.9 Presence of alcohol in blood, level not specified; Y08.89XA Assault by other specified means, initial encounter; Y93.89 Activity, other specified; Y92.89 Other specified places as the place of occurrence of the external cause; Y99.8 Other external cause status
CPT/HCPCS: 36415; 70450; 72125; 80053; 85025; 96360; 99285; J7030

== ENCOUNTER 2021-02-02 18:40 | Emergency (ER) | payer OTHER, MEDICAID ==
[~2021-02-02] VITALS: Ht 152.4 cm; Wt 85.3 kg
[2021-02-02 20:10] LABS: BASO # 0.1 x10^3/uL (0.0-0.2); BASO % 1 % (0-3); CALCIUM 9.3 mg/dL (8.5-10.1); CREATININE 0.6 mg/dL (0.6-1.0); EOS % 0 % (0-3); GFR 112.5; HEMOGLOBIN 14.4 g/dL (12.0-15.5); LYMPH # 3.4 x10^3/uL (1.0-4.8); LYMPH % 23 % (24-48); MEAN CORPUSCULAR HEMOGLOBIN 30 pg (25-35); MEAN CORPUSCULAR HGB CONC 34 g/dL (31-37); MEAN CORPUSCULAR VOLUME 88 fL (79-100); MONO # 0.9 x10^3/uL (0.0-1.1); MONO % 7 % (0-9); NEUT # 10.2 x10^3uL (1.8-7.7); NEUT % 69 % (31-73); PLATELET COUNT 305 x10^3/uL (140-400); POTASSIUM 4.2 mmol/L (3.5-5.1); RED BLOOD COUNT 4.87 x10^6/uL (3.50-5.40); RED CELL DISTRIBUTION WIDTH 13.3 % (11.5-14.5); WHITE BLOOD COUNT 14.6 x10^3/uL (4.0-11.0)
[2021-02-02 20:15] LABS: ALBUMIN 3.8 g/dL (3.4-5.0); TOTAL BILIRUBIN 0.3 mg/dL (0.2-1.0)
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
[2021-02-02 20:19] LABS: TOTAL PROTEIN 7.8 g/dL (6.4-8.2)
[2021-02-02 21:34] LABS: BACTERIA,URINE MANY /HPF (0-FEW); BILIRUBIN,URINE NEG (NEG); CLARITY,URINE CLOUDY; COLOR,URINE YELLOW; GLUCOSE,URINE NEG (NEG); NITRITE,URINE NEG (NEG); SQUAMOUS EPITHELIAL CELL,UR MOD /LPF; UROBILINOGEN,URINE 0.2 mg/dL (0.2 mg/dL)
[2021-02-03] MEDS ORDERED: NITR100C62 PO (01:12)
[2021-02-03 01:55] VITALS: BP 118/80
== END 2021-02-03 02:10 | disposition home or self-care (01) ==
LOC: ER 18:40
DX: N39.0 Urinary tract infection, site not specified (principal); R42 Dizziness and giddiness; F10.20 Alcohol dependence, uncomplicated; Z87.440 Personal history of urinary (tract) infections; Y90.9 Presence of alcohol in blood, level not specified
CPT/HCPCS: 36415; 80053; 81001; 81025; 85025; 87086; 99285

== ENCOUNTER 2021-02-04 01:49 | Emergency (ER) | payer OTHER, MEDICAID ==
[~2021-02-04] VITALS: Ht 152.4 cm; Wt 85.3 kg
[~2021-02-04 01:49] MED LIST changes: +NITR100C62 PO
[2021-02-04 01:55] VITALS: BP 141/75
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
== END 2021-02-04 02:15 | disposition home or self-care (01) ==
LOC: ER 01:49
DX: Z00.00 Encounter for general adult medical examination without abnormal findings (principal); F10.20 Alcohol dependence, uncomplicated; Y90.9 Presence of alcohol in blood, level not specified
CPT/HCPCS: 99283

== ENCOUNTER 2021-02-07 21:26 | Emergency (ER) | payer OTHER, MEDICAID ==
[~2021-02-07] VITALS: Ht 152.4 cm; Wt 85.3 kg
[2021-02-07 21:30] VITALS: BP 114/76
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
== END 2021-02-07 21:50 | disposition home or self-care (01) ==
LOC: ER 21:26
DX: Z00.00 Encounter for general adult medical examination without abnormal findings (principal); F43.10 Post-traumatic stress disorder, unspecified; F10.20 Alcohol dependence, uncomplicated; Y90.9 Presence of alcohol in blood, level not specified
CPT/HCPCS: 99284

== ENCOUNTER 2021-02-08 23:05 | Emergency (ER) | payer OTHER, MEDICAID ==
[~2021-02-08] VITALS: Ht 157.5 cm; Wt 88.7 kg
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
[2021-02-09] MEDS ORDERED: ONDANSETRON ODT 4 MG TAB.RAPDIS PO ONE (00:15)
[2021-02-09 00:45] VITALS: BP 122/76
== END 2021-02-09 00:47 | disposition home or self-care (01) ==
LOC: ER 23:05
DX: R11.2 Nausea with vomiting, unspecified (principal); F10.20 Alcohol dependence, uncomplicated; Y90.9 Presence of alcohol in blood, level not specified
CPT/HCPCS: 99283; Q0162

== ENCOUNTER 2021-02-10 15:33 | Emergency (ER) | payer OTHER, MEDICAID ==
[~2021-02-10] VITALS: Ht 157.5 cm; Wt 88.7 kg
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
[2021-02-10 17:38] LABS: BASO % 0 % (0-3); EOS % 0 % (0-3); HEMATOCRIT 43.2 % (36.0-47.0); HEMOGLOBIN 14.1 g/dL (12.0-15.5); LYMPH # 2.1 x10^3/uL (1.0-4.8); LYMPH % 21 % (24-48); MEAN CORPUSCULAR HEMOGLOBIN 30 pg (25-35); MEAN CORPUSCULAR HGB CONC 33 g/dL (31-37); MEAN CORPUSCULAR VOLUME 91 fL (79-100); MONO # 0.5 x10^3/uL (0.0-1.1); MONO % 5 % (0-9); NEUT # 7.2 x10^3uL (1.8-7.7); NEUT % 73 % (31-73); PLATELET COUNT 281 x10^3/uL (140-400); RED BLOOD COUNT 4.74 x10^6/uL (3.50-5.40); RED CELL DISTRIBUTION WIDTH 13.8 % (11.5-14.5); WHITE BLOOD COUNT 9.9 x10^3/uL (4.0-11.0)
[2021-02-10 17:48] LABS: CALCIUM 8.6 mg/dL (8.5-10.1); CREATININE 0.8 mg/dL (0.6-1.0); GFR 80.7; POTASSIUM 3.6 mmol/L (3.5-5.1)
[2021-02-10 18:02] LABS: ALBUMIN 3.3 g/dL (3.4-5.0); ALBUMIN/GLOBULIN RATIO 0.9 (1.0-1.7); TOTAL BILIRUBIN 0.2 mg/dL (0.2-1.0)
[2021-02-10 20:59] VITALS: BP 132/78
== END 2021-02-10 20:59 | disposition home or self-care (01) ==
LOC: ER 15:33
DX: Z00.8 Encounter for other general examination (principal); F32.9 Major depressive disorder, single episode, unspecified; F41.9 Anxiety disorder, unspecified; F10.20 Alcohol dependence, uncomplicated; Z20.822 Contact with and (suspected) exposure to COVID-19; Y90.9 Presence of alcohol in blood, level not specified
CPT/HCPCS: 36415; 80053; 85025; 87426; 99283; C9803; U0003

== ENCOUNTER 2021-02-18 04:02 | Emergency (ER) | payer OTHER, MEDICAID ==
[~2021-02-18] VITALS: Ht 157.5 cm; Wt 88.7 kg
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
[2021-02-18] MEDS ORDERED: LORazepam 1 MG TABLET PO ONE (05:00)
[2021-02-18 05:26] VITALS: BP 111/65
== END 2021-02-18 05:19 | disposition home or self-care (01) ==
LOC: ER 04:02
DX: F41.0 Panic disorder [episodic paroxysmal anxiety] (principal); F32.9 Major depressive disorder, single episode, unspecified
CPT/HCPCS: 99283-25